=== PATIENT | female | born 1965 | race Asian ===

== ENCOUNTER 2022-05-06 19:45 | Emergency (ER) | payer OTHER ==
[~2022-05-06] VITALS: Ht 157.5 cm; Wt 59.1 kg
[2022-05-06 20:09] LABS: BASOPHILS % (AUTO) 0.3 % (0.0-2.0); HEMATOCRIT 37.4 % (36-46); HEMOGLOBIN 12.3 g/dL (12.0-16.0); LYMPHOCYTES # (AUTO) 1.9 K/uL (1.0-4.8); LYMPHOCYTES % (AUTO) 28.6 % (22.0-44.0); MEAN CORPUSCULAR HEMOGLOBIN 32.8 pg (26.0-34.0); MEAN CORPUSCULAR HGB CONC 32.9 G/dL (31.0-37.0); MEAN CORPUSCULAR VOLUME 100 fL (80-100); MONOCYTES # (AUTO) 0.7 K/uL (0.1-1.0); MONOCYTES % (AUTO) 10.3 % (2.0-9.0); NEUTROPHILS % (AUTO) 59.8 % (40.0-70.0); PLATELET COUNT (AUTO) 283 K/uL (150-450); RED BLOOD CELL COUNT(AUTO) 3.74 MIL/uL (4.00-5.20); RED CELL DISTRIBUTION WIDTH 12.9 % (11.5-14.5)
[2022-05-06 20:29] LABS: COVID AG,FIA SOURCE NASAL SWAB
[2022-05-06] MEDS ORDERED: ACETAMINOPHEN 500 MG TABLET PO ONE (20:30)
[2022-05-06 20:42] LABS: ANION GAP 12 mmol/L (8-16); CALCIUM, TOTAL 9.1 mg/dL (8.8-10.5); CARBON DIOXIDE 20 mmol/L (22-29); CHLORIDE 104 mmol/L (98-107); CREATININE 0.63 mg/dL (0.60-1.30); GLUCOSE,RANDOM 97 mg/dL (70-110); POTASSIUM 3.6 mmol/L (3.5-5.1); SODIUM SERUM 136 mmol/L (136-145); UREA NITROGEN, BLOOD 11 mg/dL (7-18)
[2022-05-06 20:45] LABS: GLOMERULAR FILTR. RATE CALC > 60 mL/min (>60)
[2022-05-06 20:48] LABS: ALANINE AMINOTRANSFERASE 19 U/L (12-78); ALBUMIN 3.8 g/dL (3.4-5.0); ALKALINE PHOSPHATASE 71 U/L (46-116); ASPARTATE AMINOTRANSFERASE 28 U/L (15-37); BILIRUBIN,TOTAL 0.3 mg/dL (0.1-1.0); LIPASE 179 U/L (73-393); TOTAL PROTEIN, SERUM 8.7 g/dL (6.4-8.2)
[2022-05-06 20:48] LABS: INFLUENZA TYPE A NEGATIVE FOR TYPE A (NEGATIVE); INFLUENZA TYPE B NEGATIVE FOR TYPE B (NEGATIVE)
[2022-05-06 21:13] VITALS: BP 120/72
== END 2022-05-06 22:00 | disposition home or self-care (01) ==
LOC: EMS 19:46
DX: J11.1 Influenza due to unidentified influenza virus with other respiratory manifestations (principal); Z90.710 Acquired absence of both cervix and uterus; Z20.822 Contact with and (suspected) exposure to COVID-19
CPT/HCPCS: 80053; 83690; 85025; 87804; 99283